=== PATIENT | male | born 1965 | race African-American/Black ===

== ENCOUNTER 2024-05-26 13:25 | Emergency (ER) | payer MEDICAID, OTHER ==
[~2024-05-26] VITALS: Ht 177.8 cm; Wt 80.0 kg
[2024-05-26 13:27] VITALS: O2SAT 100
[2024-05-26 14:37] LABS: CARBON DIOXIDE 22 mEq/L (21-32); CHLORIDE 114 mEq/L (98-107); POTASSIUM 3.6 mEq/L (3.5-5.1); SODIUM 146 mEq/L (136-145)
[2024-05-26 14:38] LABS: CALCIUM 8.5 mg/dL (8.7-10.4)
[2024-05-26 14:43] LABS: GLUCOSE 119 mg/dL (70-105); UREA NITROGEN BLOOD 12 mg/dL (9-23)
[2024-05-26 14:45] LABS: TROPONIN I HIGH SENSITIVITY 6 ng/L (3.0-53)
[2024-05-26 14:53] LABS: BASOPHILS % 0.5 % (0.0-2.0); EOSINOPHILS % 1.1 % (0.0-5.0); ETHANOL BLOOD 325 mg/dL (<10); HEMATOCRIT. 36.8 % (42.0-52.0); HEMOGLOBIN. 11.8 g/dL (14.0-18.0); LYMPHOCYTES % 48.5 % (20.0-50.0); MEAN CORPUSCULAR HEMOGLOBIN 28.6 pg (28.0-32.0); MEAN CORPUSCULAR HGB CONC 32.2 g/dL (31.0-37.0); MEAN CORPUSCULAR VOLUME 88.6 fL (80.0-94.0); MEAN PLATELET VOLUME 8.1 fl (7.4-10.4); MONOCYTES % 5.5 % (2.0-8.0); NEUTROPHILS % 44.4 % (40.0-76.0); PLATELET 210 x1000/uL (130-400); RED BLOOD CELL COUNT 4.15 mill/uL (4.7-6.1); WHITE BLOOD COUNT 3.6 x1000/uL (4.5-11.0)
[2024-05-26] MEDS: SODIUM CHLORIDE 0.9% 1,000 ML IV ONE (15:34)
[2024-05-26 16:48] LABS: TROPONIN I HIGH SENSITIVITY 6 ng/L (3.0-53)
[2024-05-26 17:15] VITALS: BP 137/89; PULSE 89; RESP 23; TEMP 97.8
== END 2024-05-26 17:28 | disposition home or self-care (01) ==
LOC: ER 13:25
DX: R42 Dizziness and giddiness (principal)
CPT/HCPCS: 80048; 80320; 83880; 85025; 84484; 36415; 71045; 70450; 93005; 99285; J7030; Z7610; G0480